=== PATIENT | male | born 1975 | race Caucasian/White ===

== ENCOUNTER 2018-10-15 13:46 | Observation (INO) ==
[2018-10-15] MEDS ORDERED: 0.9 % Sodium Chloride 1,000 ML IVC ONE (14:33)
--- NOTE | 2018-10-15 14:40 | Emergency Department Note ---
Disposition Clinical Impression: Methamphetamine abuse, Acute urinary retention, Acute kidney injury Disposition: Admitted As Inpatient Condition: Good Referrals: Monalisa Harding, [employer]PERVISOR [Primary Care Provider] - Forms: ED Satisfaction Letter Time of Disposition: 16:35 General Adult HPI - General Chief complaint: ED Headache Stated complaint: uncontrolled movements Time Seen by Provider: 10/15/18 13:57 Source: patient Mode of arrival: private vehicle Limitations: no limitations Nursing Notes Reviewed: Yes Vital Signs Reviewed: Yes - History of Present Illness HPI Narrative: Patient presents to the ED complaining of uncontrolled movements, double vision, trouble urinating and dry mouth. He states symptoms started yesterday. He describes intermittent "shock waves going through his entire body". States he has been shaking uncontrollably with tremors in both his arms and legs that he cannot control. He also states he feels like his "brain is being squeezed" although he denies any headache or other head pain. He states he has not urinated since yesterday morning despite drinking plenty of water and feeling like he needs to urinate. He states he is also having trouble with his memory and concentration. He denies any recent injury or fall. He has not had any medication changes since April. He recently started smoking cigarettes again and snorted meth 3 days ago. States he has used meth in the past but never had similar symptoms. He denies using any other drugs. He denies any alcohol use. Medical issues are notable for hepatitis, high blood pressure, depression, ADHD, emphysema and COPD. He was hospitalized 2 months ago at [facility] for acute kidney injury and a bad urinary tract infection with a creatinine over 6 at that time. States that he had double vision and the trouble urinating at that time as well but none of the other symptoms he is currently experiencing. On initial questioning he told me today's date was 09/15/2018 and Kimberly was president. When I asked him about the president again he was able to come up with Lucie. Pain Scale: 0 - Related Data Home Medications Medication Instructions Recorded Confirmed Baclofen 20 mg PO DAILY 10/12/18 10/12/18 BuPROPion [Wellbutrin] 150 mg PO HS 10/12/18 10/12/18 BuPROPion [Wellbutrin] 300 mg PO DAILY 10/12/18 10/12/18 Gabapentin [Neurontin] 300 mg PO DAILY 10/12/18 10/12/18 Ibuprofen [Motrin] 800 mg PO Q8HR 10/12/18 10/12/18 Lisinopril [Zestril] 40 mg PO DAILY 10/12/18 10/12/18 Venlafaxine [Effexor] 37.5 mg PO DAILY 10/12/18 10/12/18 Atomoxetine [Strattera] 40 mg PO DAILY 10/15/18 10/15/18 CloNIDine HCl [Kapvay] 0.1 mg PO BID 10/15/18 10/15/18 hydroCHLOROthiazide 25 mg PO DAILY 10/15/18 10/15/18 [Hydrochlorothiazide] Allergies Allergy/AdvReac Type Severity Reaction Status Date / Time Buspirone [From BuSpar] Allergy See Verified 10/12/18 20:49 Comments naproxen [From Naprosyn] Allergy Rash Verified 10/12/18 20:49 Constitutional: Denies: fever, chills, weakness, weight change Eyes: Reports: vision change. Denies: eye pain, eye discharge ENT ED: Denies: ear pain, throat pain, dental pain, hearing loss, epistaxis, congestion, dysphagia Cardiovascular: Denies: chest pain, palpitations, dyspnea on exertion, edema, syncope Respiratory: Denies: cough, dyspnea, wheezes, hemoptysis, stridor Gastrointestinal: Denies: abdominal pain, nausea, vomiting, diarrhea, constipation, hematemesis, melena, hematochezia Genitourinary: Reports: as per HPI. Denies: urgency, dysuria, frequency, hematuria Musculoskeletal: Denies: back pain, neck pain, arthralgia, myalgia Integumentary: Denies: rash, abrasion, lesions Neurological: Reports: as per HPI, confusion, other (shaking, uncontrolled movements). Denies: headache, weakness, numbness, paresthesias, abnormal gait, vertigo Psychiatric: Denies: anxiety, depression, suicidal thoughts, homicidal thoughts, auditory hallucinations, visual hallucinations Endocrine: Denies: fatigue Hematological/Lymphatic: Denies: easy bleeding, easy bruising Allergic/Immunologic: Denies: facial swelling, urticaria Past Medical History - Past Medical History Medical history: Reports: hepatitis, hypertension Psychiatric history: Reports: anxiety - Social History Smoking Status: Current some day smoker Alcohol use: Reports: none Drug use: Reports: methamphetamine, IV Drug Use, other Physical Exam - General Limitations: no limitations General appearance: alert, anxious - Head Head exam: atraumatic, normocephalic, normal inspection - Eye Eye exam: Present: normal appearance, PERRL, EOMI, nystagmus - ENT ENT exam: normal exam, normal oropharynx, mucous membranes moist - Neck Neck exam: Present: normal inspection, full ROM, trachea midline - Chest Chest inspection: Present: normal inspection, symmetric chest wall rise - Respiratory Respiratory exam: Present: normal lung sounds bilaterally - Cardiovascular Cardiovascular exam: Present: regular rate, normal rhythm, normal heart sounds - Abdominal Exam Abdominal exam: Present: soft, Non-Tender. Absent: tenderness, distention, guarding, rebound, rigidity - Extremities Exam Extremities exam: Present: normal inspection, full ROM. Absent: tenderness, pedal edema - Back Exam Back exam: Present: normal inspection, full ROM. Absent: tenderness - Neurological Exam Neurological exam: Present: alert - Expanded Neurological Exam Patient oriented to: Present: person, place Speech: Present: fluid speech Cranial nerves: EOM function (II, III, IV, ): Normal, facial sensation (V): Normal, facial palsy (VII): Normal, spinal accessory function (XI): Normal, tongue deviation (XII): Normal Motor strength - LUE: 5/5 Motor strength - RUE: 5/5 Motor strength - LLE: 5/5 Motor strength - RLE: 5/5 Sensory exam upper extremity: light touch: Normal Sensory exam lower extremity: light touch: Normal Coma Scale Eye Opening: Spontaneous Coma Scale Motor Response: Obeys Commands Coma Scale Verbal Response: Oriented Coma Scale Total: 15 - Psychiatric Psychiatric exam: Present: normal affect, normal mood - Skin Skin exam: Present: warm, dry, intact, normal color Course Course Narrative: Patient presents to the ED with 2 days of being shaky and tremulous, dry mouth, double vision and trouble urinating after he snorting methamphetamines 2 days ago. On arrival he is afebrile, hemodynamically stable and nontoxic in appearance although he is anxious and is constantly fidgeting with some tremors in his hands. Physical exam is otherwise unremarkable including detailed neurologic exam. Symptoms may be related to his recent meth use with possible other contaminants and/or primary neurologic versus electrolyte issue. We will also concerned given his urinary symptoms that may include acute urinary retention. Will obtain bladder scan, lab work, give IV fluids and Benadryl and obtain CT scan of the head. - Reevaluation(s) Reevaluation #1: Patient was unable to void spontaneously despite numerous attempts and a He catheter was placed after bladder scan revealed a volume of [address] scan was normal. Laboratory studies are unremarkable other than elevated BUN 42 and creatinine of 2.53. Patient states he was told his kidney function had returned to normal when he was discharged 2 months ago after having acute kidney injury. He states he has never seen a urologist. Urinalysis is only positive for blood. Urine drug screen is positive only for methamphetamines. Discussed with patient need for admission for hydration for his acute kidney injury and he is agreeable. I spoke with on-call, Dr. Carrasquillo who has agreed to admit the patient. Time: 16:34 Vital Signs Temperature 97.9 F 10/15/18 13:58 Pulse Rate 93 10/15/18 13:58 Respiratory Rate 18 10/15/18 13:58 Blood Pressure 138/82 10/15/18 13:58 O2 Sat by Pulse Oximetry 95 10/15/18 13:58 Temperature 97.9 F 10/15/18 13:58 Pulse Rate 93 10/15/18 13:58 Respiratory Rate 18 10/15/18 13:58 Blood Pressure 138/82 10/15/18 13:58 O2 Sat by Pulse Oximetry 95 10/15/18 13:58 Oxygen Delivery Oxygen Delivery Room Air Medical Decision Making - Medical Records Medical records reviewed: Yes I reviewed the patient's medical records. - Lab Data Lab results reviewed: Yes I reviewed the patient's lab results. Result diagrams: 10/15/18 14:43 10/15/18 14:43 Lab Results 10/15/18 10/15/18 10/15/18 Range/Units 14:43 14:43 14:43 WBC 7.1 (4.3-11.1) K/mcL RBC 3.19 L (4.19-5.50) M/mcL Hgb 10.5 L (12.9-16.9) g/dL Hct 30.6 L (37.5-50.1) % MCV 95.9 (83.0-100.0) fL MCH 32.9 (28.0-33.3) pg MCHC 34.3 (31.6-35.5) g/dL RDW 12.7 (11.5-14.5) % Plt Count 252 (140-400) K/mcL MPV 9.2 L (9.4-12.4) fL PT 11.0 (9.4-12.1) Seconds INR 1.0 APTT 28.0 (26.0-36.0) Seconds Sodium 131 L (136-145) mEq/L Potassium 3.8 (3.5-5.1) mEq/L Chloride 99 (98-107) mEq/L Carbon Dioxide 25 (23-29) mEq/L BUN 42 H (6-20) mg/dL Creatinine 2.53 H (0.70-1.30) mg/dL Est GFR ( Amer) 34 L (> 60) Est GFR (Non-Af Amer) 28 L (> 60) BUN/Creatinine Ratio 17 (6-26) Glucose 102 (70-105) mg/dL Calculated Osmolality 283 (280-300) Calcium 8.8 (8.6-10.3) mg/dL Troponin I < 0.03 (< 0.04) ng/mL Urine Color (Yellow) Urine Clarity (Clear) Urine pH (5.0-8.0) pH Units Ur Specific [place] (1.010-1.025) Urine Protein (Neg-Trace) mg/dL Urine Glucose (UA) (Normal) mg/dL Urine Ketones (Negative) mg/dL Urine Blood (Negative) Urine Nitrite (Negative) Urine Bilirubin (Negative) Urine Urobilinogen (Normal) mg/dL Ur Leukocyte Esterase (Negative) Urine Microscopic RBC (0-3) per hpf Urine Microscopic WBC (0-3) per hpf Ur Renal Epithelial Cell (None-Few) per hpf Ur Culture Indicated? (NO) Urine Opiates Screen ([place]=517) ng/mL Ur Buprenorphine Scrn (Cutoff=5) ng/mL Ur Barbiturates Screen (Xrbbri=908) ng/mL Ur Phencyclidine Scrn (Cutoff=25) ng/mL Ur Amphetamines Screen (Zdsrns=8529) ng/mL U Benzodiazepines Scrn (Hreolg=327) ng/mL Urine Cocaine Screen (Cutoff= 300) ng/mL U Marijuana (THC) Screen (Cutoff = 50) ng/mL Ur Drug Screen Interp 10/15/18 10/15/18 Range/Units 15:23 15:23 WBC (4.3-11.1) K/mcL RBC (4.19-5.50) M/mcL Hgb (12.9-16.9) g/dL Hct (37.5-50.1) % MCV (83.0-100.0) fL MCH (28.0-33.3) pg MCHC (31.6-35.5) g/dL RDW (11.5-14.5) % Plt Count (140-400) K/mcL MPV (9.4-12.4) fL PT (9.4-12.1) Seconds INR APTT (26.0-36.0) Seconds Sodium (136-145) mEq/L Potassium (3.5-5.1) mEq/L Chloride (98-107) mEq/L Carbon Dioxide (23-29) mEq/L BUN (6-20) mg/dL Creatinine (0.70-1.30) mg/dL Est GFR ( Amer) (> 60) Est GFR (Non-Af Amer) (> 60) BUN/Creatinine Ratio (6-26) Glucose (70-105) mg/dL Calculated Osmolality (280-300) Calcium (8.6-10.3) mg/dL Troponin I (< 0.04) ng/mL Urine Color Yellow (Yellow) Urine Clarity Clear (Clear) Urine pH 5.5 (5.0-8.0) pH Units Ur Specific [place] 1.015 (1.010-1.025) Urine Protein Negative (Neg-Trace) mg/dL Urine Glucose (UA) Normal (Normal) mg/dL Urine Ketones Negative (Negative) mg/dL Urine Blood Trace-intact H (Negative) Urine Nitrite Negative (Negative) Urine Bilirubin Negative (Negative) Urine Urobilinogen Normal (Normal) mg/dL Ur Leukocyte Esterase Negative (Negative) Urine Microscopic RBC 0-3 (0-3) per hpf Urine Microscopic WBC 0-3 (0-3) per hpf Ur Renal Epithelial Cell Few (None-Few) per hpf Ur Culture Indicated? NO (NO) Urine Opiates Screen Negative (Lcypkd=853) ng/mL Ur Buprenorphine Scrn Negative (Cutoff=5) ng/mL Ur Barbiturates Screen Negative (Rfkzrm=168) ng/mL Ur Phencyclidine Scrn Negative (Cutoff=25) ng/mL Ur Amphetamines Screen Positive H (Ajdcmq=5366) ng/mL U Benzodiazepines Scrn Negative (Whkcrq=095) ng/mL Urine Cocaine Screen Negative (Cutoff= 300) ng/mL U Marijuana (THC) Screen Negative (Cutoff = 50) ng/mL Ur Drug Screen Interp See Below - Radiology Data Radiology results reviewed: Yes I reviewed the patient's radiology results.
[2018-10-15 14:51] LABS: Hematocrit 30.6 % (37.5-50.1); Hemoglobin 10.5 g/dL (12.9-16.9); Mean Corpuscular HGB Conc 34.3 g/dL (31.6-35.5); Mean Corpuscular Hemoglobin 32.9 pg (28.0-33.3); Mean Corpuscular Volume 95.9 fL (83.0-100.0); Mean Platelet Volume 9.2 fL (9.4-12.4); Platelet Count 252 K/mcL (140-400); Red Blood Count 3.19 M/mcL (4.19-5.50); Red Cell Distribution Width 12.7 % (11.5-14.5); White Blood Count 7.1 K/mcL (4.3-11.1)
[2018-10-15 15:05] LABS: BUN/Creatinine Ratio 17 (6-26); Blood Urea Nitrogen 42 mg/dL (6-20); Calcium 8.8 mg/dL (8.6-10.3); Carbon Dioxide 25 mEq/L (23-29); Chloride 99 mEq/L (98-107); Glucose 102 mg/dL (70-105); Osmolality,Calculated 283 (280-300); Potassium 3.8 mEq/L (3.5-5.1); Sodium 131 mEq/L (136-145); eGFR For African Americans 34 (> 60); eGFR For Non-African Americans 28 (> 60)
[2018-10-15 15:09] LABS: Troponin I < 0.03 ng/mL (< 0.04)
[2018-10-15 15:35] LABS: Bilirubin,Urine Negative (Negative); Blood,Urine Trace-intact (Negative); Clarity,Urine Clear (Clear); Color,Urine Yellow (Yellow); Glucose,Urine (UA) Normal (Normal); Ketones,Urine Negative (Negative); Leukocyte Esterase,Urine Negative (Negative); Nitrite,Urine Negative (Negative); PH,Urine 5.5 pH Units (5.0-8.0); Protein,Urine Negative (Neg-Trace); Specific Gravity,Urine 1.015 (1.010-1.025); Urobilinogen,Urine Normal (Normal)
[2018-10-15 15:42] LABS: WBC,Urine 0-3 per hpf (0-3)
[2018-10-15 15:44] LABS: Renal Epithelial Cells,Urine Few per hpf (None-Few)
[2018-10-15 15:46] LABS: RBC,Urine 0-3 per hpf (0-3)
[2018-10-15 15:51] LABS: Amphetamine Screen,Urine Positive ng/mL (Cutoff=1000); Barbiturate Screen,Urine Negative ng/mL (Cutoff=200); Benzodiazepines Screen,Urine Negative ng/mL (Cutoff=200); Cannabinoid Screen,Urine Negative ng/mL (Cutoff = 50); Cocaine Screen,Urine Negative ng/mL (Cutoff= 300); Opiate Screen,Urine Negative ng/mL (Cutoff=300); Phencyclidine Screen,Urine Negative ng/mL (Cutoff=25)
[2018-10-15] MEDS ORDERED: Naloxone 0.4 MG/ML INJ IVP PRN ×2 (16:35→18:12)
[2018-10-15] MEDS ORDERED: 0.9 % Sodium Chloride 1,000 ML IVC SCH (16:45)
[2018-10-15] MEDS: Baclofen 10 MG TABLET PO SCH ×2 (20:11→20:13)
[2018-10-15] MEDS: cloNIDine HCl 0.1 MG TABLET PO SCH (20:12)
[2018-10-15] MEDS: Gabapentin 300 MG CAPSULE PO SCH (20:12)
[2018-10-15] MEDS: 0.9 % Sodium Chloride 1,000 ML IVC SCH (20:13)
[2018-10-15] MEDS ORDERED: BuPROPion XL (24 HR) 150 MG TABLET PO SCH (21:00)
[2018-10-16] MEDS: Ibuprofen 800 MG TABLET PO SCH ×2 (00:15→08:13)
[2018-10-16] MEDS: 0.9 % Sodium Chloride 1,000 ML IVC SCH (04:26)
[2018-10-16 05:05] LABS: BUN/Creatinine Ratio 19 (6-26); Blood Urea Nitrogen 28 mg/dL (6-20); Calcium 8.1 mg/dL (8.6-10.3); Carbon Dioxide 27 mEq/L (23-29); Chloride 109 mEq/L (98-107); Glucose 88 mg/dL (70-105); Osmolality,Calculated 293 (280-300); Potassium 4.3 mEq/L (3.5-5.1); Sodium 139 mEq/L (136-145); eGFR For African Americans > 60 (> 60); eGFR For Non-African Americans 52 (> 60)
[2018-10-16] MEDS: Gabapentin 300 MG CAPSULE PO SCH (08:13)
[2018-10-16] MEDS: cloNIDine HCl 0.1 MG TABLET PO SCH (08:14)
[2018-10-16] MEDS: Baclofen 10 MG TABLET PO SCH ×2 (08:14→13:46)
[2018-10-16] MEDS ORDERED: Lisinopril 20 MG TABLET PO SCH (09:00)
[2018-10-16] MEDS ORDERED: BuPROPion XL (24 HR) 150 MG TABLET PO SCH (09:00)
[2018-10-16] MEDS ORDERED: hydroCHLOROthiazide 25 MG TABLET PO SCH (09:00)
[2018-10-16] MEDS ORDERED: Venlafaxine XR (24 HR) 37.5 MG CAP.ER.24H PO SCH (09:00)
[2018-10-16 09:36] VITALS: BP 101/65
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
--- NOTE | 2018-10-16 13:06 | Discharge Summary ---
Orders not resulted at time of discharge: Pending orders 10/15/18 15:23 Culture,Urine [RM] Stat Date of Encounter: 10/16/18 Time of Encounter: 13:04 - Discharge Diagnosis (1) Acute kidney injury Priority: Primary Status: Acute Comments: improving. follow up with PCP. encourage PO fluids. (2) Acute urinary retention Priority: Primary Status: Acute Comments: start flomax. f/u with urologist. (3) Methamphetamine abuse Priority: Primary Status: Acute Comments: educated side effects. offered assistance. (4) Ankle sprain Priority: Secondary Status: Acute Comments: healing, rest, ice and elevate as needed Qualifiers: Encounter type: sequela Involved ligament of ankle: unspecified ligament Laterality: right Qualified Code(s): S93.401S - Sprain of unspecified ligament of right ankle, sequela Hospital course: Mr. Dowd is a 42 year old male discharging to home after having urinary retention, was given IVF and creatinine improving. started on Flomax. follow up with PCP within 1 week. ortiz cath removed, was able to urinate. denies fever, chills, NVD, SOB or chest pain. educated smoking cessation and drug abuse. Discharge discussed with: patient, nurse Time spent discussing smoking cessation with patient: 3 to 10 minutes - Time Spent with Patient Total time spent providing and/or coordinating discharge services: Time spent: Less than 30 minutes - Discharge Medications Prescriptions: No Action Lisinopril [Zestril] 40 mg PO DAILY Baclofen 20 mg PO QID Gabapentin [Neurontin] 300 mg PO BID Venlafaxine [Effexor] 37.5 mg PO DAILY Ibuprofen [Motrin] 800 mg PO Q8HR BuPROPion [Wellbutrin] 150 mg PO HS BuPROPion [Wellbutrin] 300 mg PO DAILY hydroCHLOROthiazide [Hydrochlorothiazide] 25 mg PO DAILY Atomoxetine [Strattera] 40 mg PO DAILY CloNIDine HCl [Kapvay] 0.1 mg PO BID Home Medications: Baclofen 20 mg PO QID 10/12/18 [History] BuPROPion [Wellbutrin] 150 mg PO HS 10/12/18 [History] BuPROPion [Wellbutrin] 300 mg PO DAILY 10/12/18 [History] Gabapentin [Neurontin] 300 mg PO BID 10/12/18 [History] Ibuprofen [Motrin] 800 mg PO Q8HR 10/12/18 [History] Lisinopril [Zestril] 40 mg PO DAILY 10/12/18 [History] Venlafaxine [Effexor] 37.5 mg PO DAILY 10/12/18 [History] Atomoxetine [Strattera] 40 mg PO DAILY 10/15/18 [History] CloNIDine HCl [Kapvay] 0.1 mg PO BID 10/15/18 [History] Tamsulosin [Flomax] 0.4 mg PO DAILY #14 capsule 10/16/18 [Rx] Allergies/Adverse Reactions: Allergy/AdvReac Type Severity Reaction Status Date / Time Buspirone [From BuSpar] Allergy See Verified 10/12/18 20:49 Comments naproxen [From Naprosyn] Allergy Rash Verified 10/12/18 20:49 Date of admission: 10/15/18 16:55 Primary care physician: Monalisa Harding [employer]ING [employer]ACHINE OPERATOR Discharging clinician: Valeriano Carrasquillo Anticipated date of discharge: 10/16/18 - Constitutional Vitals: Temp Pulse Resp BP Pulse Ox 97.6 F 64 18 101/65 97 10/16/18 08:00 10/16/18 08:00 10/16/18 08:00 10/16/18 08:00 10/16/18 08:00 General appearance: Present: cooperative, A&O X 3, pleasant, no acute distress, answers questions appropriately - Head Head exam: Present: atraumatic, normocephalic - Eye Eye exam: Present: PERRL, conjuntiva pink, sclera anicteric Pupils: Present: PERRL - Neck Neck exam general surgery: Present: supple, trachea midline. Absent: lymphadenopathy - Respiratory Respiratory exam: Present: CTAB. Absent: accessory muscle use, rales, rhonchi, wheezes - Cardiovascular Cardiovascular exam: Present: RRR, +S1, +S2. Absent: diastolic murmur, gallop, rubs, systolic murmur - GI/Abdominal GI/Abdominal exam: Present: normal bowel sounds, soft, no peritoneal signs. Absent: distended, tenderness - Extremities Exam Extremities exam: Present: warm, radial pulses palpable and symmetrical. Absent: calf tenderness, cyanotic, pedal edema - Neurological Exam Neurological exam: Present: CN II-XII intact, oriented X3, no focal deficits. Absent: pronater drift, facial droop, speech deficit - Skin Skin exam: Present: dry, intact - Patient Status Disposition: Home, Self-Care Condition: Good Functional capacity at discharge: independent ambulation Overall status at discharge: patient is progressing back to baseline - Discharge Instructions Follow Up With: Monalisa Harding [employer]ACH[employer] OPERATOR [Primary Care Provider] - - Diet and Activity Activity: increase activity as tolerated Diet: advance to your usual diet - VTE Reasons for not Prescribing Prophylaxis: Treatment not Indicated - Low risk for VTE
[2018-10-16 14:20] LABS: Alanine Aminotransferase 58 Units/L (7-52); Albumin 3.5 g/dL (3.5-5.7); Albumin/Globulin Ratio 2.2 (1.1-2.2); Alkaline Phosphatase 52 Units/L (34-104); Aspartate Amino Transferase 32 Units/L (13-39); BUN/Creatinine Ratio 19 (6-26); Bilirubin,Total 0.2 mg/dL (0.3-1.0); Blood Urea Nitrogen 26 mg/dL (6-20); Calcium 8.1 mg/dL (8.6-10.3); Carbon Dioxide 26 mEq/L (23-29); Chloride 107 mEq/L (98-107); Globulin 1.6 g/dL (2.4-3.5); Glucose 121 mg/dL (70-105); Osmolality,Calculated 288 (280-300); Potassium 4.9 mEq/L (3.5-5.1); Sodium 136 mEq/L (136-145); Total Protein 5.1 g/dL (6.4-8.9); eGFR For African Americans > 60 (> 60); eGFR For Non-African Americans 58 (> 60)
== END 2018-10-16 16:16 | disposition home or self-care (01) ==
LOC: EMEROOGRE 13:46 → INPGRE 13:46